=== PATIENT | male | born 2000 | race Two or more races ===

== ENCOUNTER 2025-09-18 19:30 | Emergency (ER) | payer SELFPAY ==
[~2025-09-18] VITALS: Ht 177.8 cm; Wt 120.0 kg
--- NOTE | 2025-09-18 19:39 | ECG ---
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
--- NOTE | 2025-09-18 19:43 | ED.PDOC ---
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 EMS reports, patient is coming from home where he c/o left-sided chest pain with associated bilateral arm numbness onset, 1200 today (09/18/25). Patient relays, that he is a daily alcohol drinker however, did not have a drink today. Patient endorses, the use of illicit drugs on Wednesday (09/15/25) to help cope with symptoms. Upon arrival to the ED patient is hypertensive with a blood pressure of 164/125mmHg. Patient denies shortness of breath, nausea, vomiting, dizziness, or headache. No other symptoms or modifying factors are present at this time. Time Seen by MD: 19:30 Reviewed Notes: Nurses Notes, Newspaper Managing Editor Notes, Medications, Allergies Allergies: Coded Allergies: NO KNOWN ALLERGIES (Unverified , 09/18/25) Information Source: Patient, Emergency Med Personnel Mode of Arrival: EMS Severity: Moderate Timing: Hours Duration: Since onset Prehospital treatment: None Location: Chest (L) Cardiac Risk Factors: Drugs PE Risk Factors: None History of: None Modifying Factors: Nothing Associated Signs and Symptoms: None Past Medical History PAST MEDICAL HISTORY: Denies Surgical History: Appendectomy, Tonsillectomy Family History Family History: Family hx of DM, Family hx of heart jesenia Social History Smoker: Non-Smoker Alcohol: Heavy Drugs: Cocaine Lives In: Home Constitutional: denies: chills, diaphoresis, fatigue, fever, malaise, sweats, weakness, others EENTM: denies: blurred vision, double vision, ear bleeding, ear discharge, ear drainage, ear pain, ear ringing, eye pain, eye redness, hearing loss, mouth pain, mouth swelling, nasal discharge, nose bleeding, nose congestion, nose pain, photophobia, tearing, throat pain, throat swelling, voice changes, others Respiratory: denies: cough, hemoptysis, orthopnea, SOB at rest, shortness of breath, SOB with excertion, stridor, wheezing, others Cardiovascular: reports: chest pain; denies: dizzy spells, diaphoresis, Dyspnea on exertion, edema, irregular heart beat, left arm pain, lightheadedness, palpitations, PND, syncope, others Gastrointestinal: denies: abdomen distended, abdominal pain, blood streaked bowels, constipated, diarrhea, dysphagia, difficulty swallowing, hematemesis, melena, nausea, poor appetite, poor fluid intake, rectal bleeding, rectal pain, vomiting, others Genitourinary: denies: burning, dysuria, flank pain, frequency, hematuria, incontinence, penile discharge, penile sore, pain, testicle pain, testicle swelling, urgency, others Neurological: denies: dizziness, fainting, headache, left sided numbness, left sided weakness, numbness, paresthesia, pre-existing deficit, right sided numbness, right sided weakness, seizure, speech problems, tingling, tremors, weakness, others Musculoskeletal: denies: back pain, gout, joint pain, joint swelling, muscle pain, muscle stiffness, neck pain, others Integumetry: denies: bruises, change in color, change in hair/nails, dryness, laceration, lesions, lumps, rash, wounds, others Allergic/Immunocompromised: denies: Difficulty Healing, Frequent Infections, Hives, Itching, others Hematologic/Lymphatic: denies: anemia, blood clots, easy bleeding, easy bruising, swollen glands, others Endocrine: denies: excessive hunger, excessive sweating, excessive thirst, excessive urination, flushing, intolerance to cold, intolerance to heat, unexplained weight gain, unexplained weight loss, others Psychiatric: denies: anxiety, bipolar disorder, depression, hopeless, panic disorder, schizophrenia, sleepless, suicidal, others All Other Systems: Reviewed and Negative Physical Exam General Appearance: No Apparent Distress HEENT: Normal ENT Inspection, Pharynx Normal, TMs Normal Neck: Full Range of Motion, Non-Tender, Normal, Normal Inspection Respiratory: Chest Non-Tender, Lungs Clear, No Accessory Muscle Use, No Respiratory Distress, Normal Breath Sounds Cardiovascular: No Edema, No JVD, No Murmur, No Gallop, Normal Peripheral Pulses, Regular Rate/Rhythm Breast Exam: Deferred Gastrointestinal: No Organomegaly, Non Tender, No Pulsatile Mass, Normal Bowel Sounds, Soft Genitalia: Deferred Pelvic: Deferred Rectal: Deferred Extremities: No calf tenderness, Normal capillary refill, Normal inspection, Normal range of motion, Non-tender, No pedal edema Musculoskeletal : Apperance: Normal Neurologic: Alert, form raiser II-XII nml as Tested, No Motor Deficits, Normal Affect, Normal Mood, No Sensory Deficits Cerebellar Function: Normal Reflexes: Normal Skin: Dry, Normal Color, Warm Lymphatic: No Adenopathy EKG EKG : Pulse Rate (adult): 86 [place]: Normal Cardiac Rhythm: NSR Block: None Hypertrophy: None ST: Normal Was a procedure done? Was a procedure done?: No CP Differential Dx Differential Diagnosis: Anxiety / Panic Attack Differential Diagnosis: Angina, Chest Wall Pain, Costochondritis, Esophageal reflux/spasm, Gastritis X-Ray, Labs, Meds, VS Vital Signs Date Time Temp Pulse Resp B/P (MAP) Pulse Ox O2 Delivery O2 Flow Rate FiO2 09/18/25 19:43 86 09/18/25 19:39 98.0 100 20 195/135 99 98.0 09/18/25 19:37 86 Lab Test 09/18/25 20:32 09/18/25 19:41 Range/Units Troponin I High Sensitivity Pending 33 </=54 ng/L White Blood Count 7.2 4.4-10.8 10^3/uL Red Blood Count 5.30 4.5-5.90 10^6/uL Hemoglobin 15.8 13.5-17.5 g/dL Hematocrit 46.2 41.0-53.0 % Mean Corpuscular Volume 87.2 80.0-100.0 fL Mean Corpuscular Hemoglobin 29.8 28.0-32.0 pg Mean Corpuscular Hemoglobin Concent 34.2 32.0-36.0 g/dL Red Cell Distribution Width 13.5 11.8-14.3 % Platelet Count 327 140-450 10^3/uL Mean Platelet Volume 8.2 6.9-10.8 fL Neutrophils (%) (Auto) 49.4 37.0-80.0 % Lymphocytes (%) (Auto) 37.6 10.0-50.0 % Monocytes (%) (Auto) 9.9 0.0-12.0 % Eosinophils (%) (Auto) 2.1 0.0-7.0 % Basophils (%) (Auto) 1.0 0.0-2.0 % Neutrophils # (Auto) 3.6 1.6-8.6 10 ^3/uL Lymphocytes # (Auto) 2.7 0.4-5.4 10 ^3/uL Monocytes # (Auto) 0.7 0-1.3 10 ^3/uL Eosinophils # (Auto) 0.2 0-0.8 10 ^3/uL Basophils # (Auto) 0.1 0-0.2 10 ^3/uL Nucleated Red Blood Cells 0.2 % D-Dimer, Quantitative < 0.19 0.0-0.49 mg/L FEU Sodium Level 141 136-145 mmol/L Potassium Level 3.5 3.5-5.1 mmol/L Chloride Level 103 98-107 mmol/L Carbon Dioxide Level 25 20-31 mmol/L Anion Gap 13 5-15 Blood Urea Nitrogen 11 9-23 mg/dL Creatinine 0.83 0.700-1.30 mg/dL Glomerular Filtration Rate Calc 124 >90 mL/min BUN/Creatinine Ratio 13.3 10.0-20.0 Serum Glucose 102 74-106 mg/dL Calcium Level 10.3 8.7-10.4 mg/dL Plasma/Serum Blood Alcohol < 3.0 <10 mg/dL The patient's CBC is within normal limits The chemistry panel is within normal limits. The D-dimer is negative The rest of the troponin level is negative The chest x-ray is negative The patient is being discharged and will follow up with the primary care doctor The patient will return to the emergency department's condition worsens The patient was given substance abuse counseling. Images Reviewed?: Images reviewed and evaluated by me Time of 1ST Reevaluation: 20:00 Reevaluation 1ST: Unchanged Patient Education/Counseling: Diagnosis, Treatment, Prognosis, Need For Follow Up Family Education/Counseling: No Family Present SEPSIS Sepsis Screen Physician Orders Chest Portable (09/18/25 19:33) Heplock Iv (09/18/25 19:33) [employer] Solution Architect (09/18/25 19:33) Blood Pressure (09/18/25 19:33) Pulse Oximetry (09/18/25 19:33) Troponin-I Hs (09/18/25 20:33) Troponin-I Hs (09/18/25 22:33) Electrocardigram (09/18/25 20:33) Electrocardigram (09/18/25 22:33) Drug Screen (09/18/25 19:36) Vital Signs Date Time Temp Pulse Resp B/P (MAP) Pulse Ox O2 Delivery O2 Flow Rate FiO2 09/18/25 19:43 86 09/18/25 19:39 98.0 100 20 195/135 99 98.0 09/18/25 19:37 86 Laboratory Tests Test 09/18/25 19:41 White Blood Count 7.2 10^3/uL (4.4-10.8) Departure 1 Departure Time of Disposition: 21:07 Impression: Primary Impression: Acute chest pain Additional Impression: Cocaine abuse Disposition: 01 HOME / SELF CARE / HOMELESS Condition: Fair Discharged With: Self Critical Care Note Critical Care Time?: No Stability Stability form required: No Heart Score Heart Score: Heart Score Response (Comments) Value History Slightly Suspicious 0 EKG Normal 0 Age <45 0 Risk Factors 1 or 2 risk factors 1 Troponin Normal limit 0 Total 1 I personally scribed for GREG ADAMS MD ([email or web address]) on 09/18/25 at 19:43. Electronically submitted by Suzanne Trent ([email or web address]). GREG ADAMS MD Sep 18, 2025 19:43
[2025-09-18 19:51] LABS: Hematocrit 46.2 % (41.0-53.0); Hemoglobin 15.8 g/dL (13.5-17.5); Mean Corpuscular Hemoglobin 29.8 pg (28.0-32.0); Mean Corpuscular Volume 87.2 fL (80.0-100.0); Nucleated Red Blood Cells % 0.2 %
[2025-09-18 19:58] LABS: Chloride 103 mmol/L (98-107); Sodium 141 mmol/L (136-145)
[2025-09-18 19:59] LABS: Anion Gap 13 (5-15); Carbon Dioxide 25 mmol/L (20-31)
[2025-09-18 20:00] LABS: Calcium 10.3 mg/dL (8.7-10.4)
[2025-09-18 20:04] LABS: BUN/Creatinine Ratio 13.3 (10.0-20.0); Blood Urea Nitrogen 11 mg/dL (9-23); Glucose 102 mg/dL (74-106)
[2025-09-18 20:06] LABS: Potassium 3.5 mmol/L (3.5-5.1)
--- NOTE | 2025-09-18 21:05 | DVH ---
CHEST RADIOGRAPH REASON FOR EXAM: Chest pain COMPARISON: None TECHNIQUE: One view of the chest is provided FINDINGS: The cardiomediastinal silhouette is within normal limits for technique. There is no focal airspace disease. There is no significant pleural effusion. No acute bony abnormality is identified. IMPRESSION: No radiographic evidence of acute cardiopulmonary process.
[2025-09-18 21:41] VITALS: BP 142/100; PULSE 98; RESP 16; TEMP 98.4; O2SAT 98
== END 2025-09-18 22:00 | disposition home or self-care (01) ==
LOC: ER 19:30 → EDBD 19:30 → ER 22:00
DX: R07.89 Other chest pain (principal); I10 Essential (primary) hypertension; F14.10 Cocaine abuse, uncomplicated; Z90.49 Acquired absence of other specified parts of digestive tract; Z90.89 Acquired absence of other organs
CPT/HCPCS: 36415; 71045; 80048; 80320; 84484; 85025; 85379; 93005